=== PATIENT | male | born 1960 | race Caucasian/White ===

== ENCOUNTER 2018-01-10 18:46 | Emergency (ER) | payer MEDICAID ==
[~2018-01-10] VITALS: Ht 170.2 cm; Wt 88.6 kg
[2018-01-10 19:05] VITALS: Ht 170.2 cm; Wt 88.6 kg
[2018-01-10] MEDS ORDERED: GLUCOPHAGE500 MG PO (19:09)
[2018-01-10] MEDS ORDERED: GABAPENTIN100 MG PO (19:09)
[2018-01-10] MEDS ORDERED: REQUIP1 MG PO (19:10)
[2018-01-10] MEDS ORDERED: HYDROCODON-ACE1 EAC7 PO (21:52)
[2018-01-10 23:03] VITALS: BP 140/78
== END 2018-01-10 22:26 | disposition home or self-care (01) ==
LOC: D.ER 18:46
DX: S61.412A Laceration without foreign body of left hand, initial encounter (principal); W26.0XXA Contact with knife, initial encounter; Y93.89 Activity, other specified; Y92.019 Unspecified place in single-family (private) house as the place of occurrence of the external cause; E11.9 Type 2 diabetes mellitus without complications; F17.200 Nicotine dependence, unspecified, uncomplicated

== ENCOUNTER 2019-10-02 00:09 | Inpatient (IN) | payer MEDICAID ==
[~2019-10-02] VITALS: Ht 170.2 cm; Wt 77.1 kg
[~2019-10-02 00:09] MED LIST: GABAPENTIN100 MG PO; GLUCOPHAGE500 MG PO; HYDROCODON-ACE1 EAC7 PO; REQUIP1 MG PO
[2019-10-02 01:02] LABS: BASOPHILS 0.5 % (0-2); EOSINOPHILS 0.4 % (0-7); HEMATOCRIT 50.8 % (42.0-54.0); HEMOGLOBIN 16.7 g/dL (13.5-17.5); IMMATURE GRANULOCYTES 0.3 % (0-5); LYMPHOCYTES 6.3 % (15-50); MCH 32.4 pg (26.0-34.0); MCHC 32.9 g/dL (31.0-37.0); MCV 98.6 fL (80.0-100.0); MEAN PLATELET VOLUME 9.6 fL (7.4-10.4); MONOCYTES 0.6 % (2-11); NEUTROPHILS 91.9 % (40-80); PLATELET COUNT 239 10x3/uL (130-400); RBC 5.15 10x6/uL (4.20-6.10); RDW 13.3 % (11.5-14.5); WBC 7.9 10x3/uL (4.8-10.8)
[2019-10-02 01:12] LABS: APTT 43.5 SECONDS (22.8-39.4); PROTIME 13.2 SECONDS (11.6-15.0)
[2019-10-02 01:18] LABS: CALC OSMOLALITY 286 mosm/kg (275-300); CALCIUM 9.2 mg/dL (8.5-10.1); CARBON DIOXIDE 33.5 mmol/L (21.0-32.0); CHLORIDE - SERUM 104 mmol/L (98-107); CREATININE - SERUM 0.9 mg/dL (0.6-1.3); GLUCOSE 226 mg/dL (74-106); POTASSIUM - SERUM 4.3 mmol/L (3.5-5.1); SODIUM 141 mmol/L (136-145); UREA NITROGEN 9 mg/dL (7-18); eGFR NON AFRICAN AMERICAN > 90 mL/min (90-120)
[2019-10-02 01:36] LABS: ALBUMIN 4.1 g/dL (3.4-5.0); ALKALINE PHOSPHATASE 74 U/L (30-120); ALT (SGPT) 41 U/L (10-68); BILIRUBIN - TOTAL 0.56 mg/dL (0.2-1.3); CKMB 10.3 U/L (0.0-3.6); CREATINE KINASE 539 UL (21-232); PRO BNP 53 pg/mL (0-125); PROTEIN - SERUM 8.5 g/dL (6.4-8.2)
[2019-10-02 01:48] LABS: TROPONIN-I < 0.017 ng/mL (0.000-0.060)
[2019-10-02 04:15] VITALS: BP 120/78; BMI 26.7
--- NOTE | 2019-10-02 06:27 | NUR ---
PT. O2 SAT 77% ON ROOM AIR. REFUSED TO PUT ON O2 REFUSED UPDRAFT. STATED I'LL DO IT WHEN I GET DAME GOOD AND READY. WAS THROWING THINGS IN ROOM WITH RT.REFUSED ALL TX WITH RT AND AGAIN WITH THIS NURSE.
[2019-10-02 09:50] VITALS: Ht 170.2 cm; Wt 77.1 kg
[2019-10-02 10:00] VITALS: BP 108/63
[2019-10-02 10:47] LABS: BILIRUBIN NEGATIVE (NEGATIVE); GLUCOSE 1000 mg/dL (NEGATIVE); KETONE MODERATE mg/dL (NEGATIVE); NITRITE NEGATIVE (NEGATIVE); SPECIFIC GRAVITY 1.015 (1.005-1.020); UROBILINOGEN NORMAL (NORMAL)
[2019-10-02 13:47] VITALS: BP 105/55
--- NOTE | 2019-10-02 14:15 | NUR ---
CHARGING PATIENTS PHONE AT NURSES STATION ON MY WAREHOUSE ADMINISTRATIVE ASSISTANT. CL IN REACH. REQUESTED AND RECEIVED DIET COKES. NO FURTHER NEEDS AT THIS TIME. WCTM
--- NOTE | 2019-10-02 14:30 | NUR ---
CALLED LAB TO SEE WHETHER OR NOT THEY STILL HAD URINE FROM WHAT I COLLECTED EARLIER. THEY STATED THEY COULD GET THE UDS FROM WHAT I HAD ALREADY COLLECTED.
--- NOTE | 2019-10-02 14:36 | NUR ---
PATIENT ASLEEP ON LEFT SIDE. EASILY AWAKENED. CL IN REACH. WCTM
[2019-10-02 14:40] LABS: UDS - AMPHET NEGATIVE QUAL (NEGATIVE); UDS - BARB NEGATIVE QUAL (NEGATIVE); UDS - BENZO POSITIVE QUAL (NEGATIVE); UDS - COCAINE NEGATIVE QUAL (NEGATIVE); UDS - OPIATE NEGATIVE QUAL (NEGATIVE); UDS - PCP NEGATIVE QUAL (NEGATIVE); UDS - THC NEGATIVE QUAL (NEGATIVE)
--- NOTE | 2019-10-02 16:14 | NUR ---
PATIENT REQUESTS TO GO OUT FOR A CIGARETTE. I TOLD HIM THAT IS NOT ADVISABLE BECAUSE OF HIS COPD EXACERBATION. TAUGHT HIM THAT WITH HIS O2 SAT IS ONLY AT 90 % ON ROOM AIR. HE STATES THAT HE IS GOING TO DO IT ANYWAY. REQUESTED AND RECEIVED CELL PHONE BACK. CL IN REACH. HANS
[2019-10-02] MEDS ORDERED: VALIUM 2 MG TAB2 MG PO (18:07)
[2019-10-02] MEDS ORDERED: GABAPENTIN300 MG PO (18:08)
[2019-10-02 18:09] VITALS: BP 119/66
--- NOTE | 2019-10-02 19:30 | NUR ---
PT NOT WEARING TELEMETRY AND REFUSES TO WEAR IT. NOTIFIED FIRMWARE SOFTWARE VERIFICATION ENGINEER OF THIS.
--- NOTE | 2019-10-02 19:50 | NUR ---
SITTING UP ON SIDE OF BED. ALERT AND ORIENTED X4. ANXIOUS. STATES HIS IS LEAVING HIM. VISIBLY UPSET. NOT WEARING TELEMETRY AND REFUSES TO. REFUSES IV FLUIDS AND STATES, I'M DRINKING ENOUGH. WEARS O2 @ 4L/NC AT TIMES. DENIES PAIN. NONPROD COUGH NOTED. SALINE LOCK NOTED TO RT HAND. AMBULATORY. SR ELEVATED X2. CL IN REACH.
--- NOTE | 2019-10-02 22:30 | NUR ---
CONSENTS FOR BRONCH SIGNED AND PLACED ON CHART. INSTRUCTED OF NPO AFTER MIDNIGHT AND HE VERBALIZED UNDERSTANDING.
[2019-10-03] VITALS (10 sets, daily range): BP systolic 80–128; BP diastolic 36–75
--- NOTE | 2019-10-03 02:22 | NUR ---
LYING IN BED. HAS BEEN RESTING FOR THE LAST COUPLE OF HOURS. NO DISTRESS. NOT WEARING 02. CL IN REACH.
[2019-10-03 05:41] LABS: CALC OSMOLALITY 289 mosm/kg (275-300); CALCIUM 8.4 mg/dL (8.5-10.1); CARBON DIOXIDE 27.4 mmol/L (21.0-32.0); CHLORIDE - SERUM 102 mmol/L (98-107); CREATININE - SERUM 0.8 mg/dL (0.6-1.3); GLUCOSE 270 mg/dL (74-106); SODIUM 139 mmol/L (136-145); eGFR NON AFRICAN AMERICAN > 90 mL/min (90-120)
[2019-10-03 05:48] LABS: BASOPHILS 0.1 % (0-2); EOSINOPHILS 0.1 % (0-7); HEMATOCRIT 43.6 % (42.0-54.0); HEMOGLOBIN 14.4 g/dL (13.5-17.5); IMMATURE GRANULOCYTES 0.2 % (0-5); LYMPHOCYTES 7.6 % (15-50); MCH 31.9 pg (26.0-34.0); MEAN PLATELET VOLUME 10.1 fL (7.4-10.4); MONOCYTES 1.6 % (2-11); NEUTROPHILS 90.4 % (40-80); RBC 4.52 10x6/uL (4.20-6.10); RDW 13.3 % (11.5-14.5)
[2019-10-03 05:49] LABS: MCV 96.5 fL (80.0-100.0); PLATELET COUNT 289 10x3/uL (130-400)
[2019-10-03 05:57] LABS: UREA NITROGEN 17 mg/dL (7-18)
--- NOTE | 2019-10-03 08:31 | NUR ---
PATIENT AWAKE AND A/O. FOLLOWS INSTRUCTIONS. UNDERSTANDS HE IS NPO. NO FURTHER NEEDS AT THIS TIME. CL IN REACH. WCTM
--- NOTE | 2019-10-03 09:28 | MORECARE ---
CASE MANAGEMENT DISCHARGE SUMMARY PATIENT: KANWAL HILL UNIT: [id number] ADM DATE: 10/02/19 AGE: 58 : 56 SEX: M ROOM/BED: D.2211 AUTHOR: JERONIMO AMAYA PHYSICIAN: REFERRING PHYSICIAN: KALEB QUINTANA MD DATE OF SERVICE: 10/03/19 Discharge Plan Patient Name: KANWLA HILL Facility: [facility]:[place] : 1960 Planned Disposition: Home Anticipated Discharge Date: Discharge Date: Expected LOS: Initial Reviewer: [email or web address] Initial Review Date: 10/02/2019 Generated: 10/03/19 10:28 am DCPIA - Discharge Planning Initial Assessment Updated by [email or web address]: Silvana Sanders on 10/03/19 9:26 am * Is the patient Alert and Oriented? Yes * PCP FARO * [facility] * Preadmission Environment Home with Family * ADLs Independent * Equipment None * List name and contact numbers for known caregivers / representatives who currently or will assist patient after discharge: NOVEMBER (DAUGHTER) [phone] * Verbal permission to speak to the caregivers and representatives has been obtained from the patient. N/A * Community resources currently utilized None * Additional services required to return to the preadmission environment? No * Can the patient safely return to the preadmission environment? Yes * Has this patient been hospitalized within the prior 30 days at any hospital? No Patient Name: KANWAL HILL Page [phone] at 0928 All edits/amendments must be made on the electronic document DICTATION DATE: 10/03/19927 REALTY SPECIALIST: LOGAN 10/03/19927 RPT#: [id number] DC DATE: STATUS: ADM IN [facility] [address] [place] [address] END OF REPORT
--- NOTE | 2019-10-03 09:35 | MORECARE ---
CASE MANAGEMENT DISCHARGE SUMMARY PATIENT: KANWAL HILL UNIT: [id number] ADM DATE: 10/02/19 AGE: 58 : 56 SEX: M ROOM/BED: D.2211 AUTHOR: JERONIMO AMAYA PHYSICIAN: REFERRING PHYSICIAN: KALEB QUINTANA MD DATE OF SERVICE: 10/03/19 Discharge Plan Patient Name: KANWAL HILL Facility: [facility]:[place] : 1960 Planned Disposition: Home Anticipated Discharge Date: Discharge Date: Expected LOS: Initial Reviewer: [email or web address] Initial Review Date: 10/02/2019 Generated: 10/03/19 10:34 am Comments DCP- Discharge Planning Updated by [email or web address]: Silvana Sanders on 10/03/19 8:[address] Patient Name: KANWAL HILL Admission Status: ER Accout number: [id number] Admission Date: 10-02-2019 : 1960 Admission Diagnosis: Attending: KALEB QUINTANA Current LOS: 1 Anticipated DC Date: Planned Disposition: Home Primary Insurance: MEDICAID [place] Discharge Planning Comments: CM met with patient to complete initial dc planning assessment. CM educated patient on the CM role and verbal consent given by patient to complete assessment. Patient stated that he was evicted from his apartment 4 days ago and all his belongings were at his girlfriends home of 37 years but she left him. At discharge patient plans to go home to his daughters home in [place] and feels this is a safe discharge. CM discussed availability of home health, rehab services, and medical equipment. Patient denied known discharge needs at this time. His daughter will need to be called when there is an estimated discharge date because she lives 8 hours away. November (daughter) [phone]. CM will continue to follow and will assist as needed with dc plans/needs. Photostatic Copy Maker: Silvana Sanders DCPIA - Discharge Planning Initial Assessment Updated by [email or web address]: Silvana Sanders on 10/03/19 9:26 am * Is the patient Alert and Oriented? Yes * PCP FARO * Pharmacy [facility] * Preadmission Environment Home with Family * ADLs Independent * Equipment None * List name and contact numbers for known caregivers / representatives who currently or will assist patient after discharge: NOVEMBER (DAUGHTER) [phone] * Verbal permission to speak to the caregivers and representatives has been obtained from the patient. N/A * Community resources currently utilized None * Additional services required to return to the preadmission environment? No * Can the patient safely return to the preadmission environment? Yes * Has this patient been hospitalized within the prior 30 days at any hospital? No Last DP export: 10/03/19 8:28 a Patient Name: KANWAL HILL Page [phone] at 0935 All edits/amendments must be made on the electronic document DICTATION DATE: 10/03/19933 TRAVEL TICKETING REVIEWER: LOGAN 10/03/19933 RPT#: [id number] DC DATE: STATUS: ADM IN [facility] [address] [place] [address] END OF REPORT
--- NOTE | 2019-10-03 19:10 | NUR ---
BEDSIDE REPORT RECEIVED FROM DAY SHIFT, PT CARE ASSUMED. INTRODUCED SELF AND WROTE NAME ON BOARD. PT SITTING UP ON SIDE OF BED, AAOX4. DENIES ANY NEEDS AT THIS TIME. BED IN LOWEST POSITION, SR X2, CALL LIGHT WITHIN REACH. WILL CONTINUE TO MONITOR.
[2019-10-04] VITALS: BP 143/86
[2019-10-04 06:41] LABS: BASOPHILS 0.1 % (0-2); EOSINOPHILS 0 % (0-7); HEMATOCRIT 43.4 % (42.0-54.0); HEMOGLOBIN 14.5 g/dL (13.5-17.5); IMMATURE GRANULOCYTES 0.2 % (0-5); LYMPHOCYTES 9.9 % (15-50); MCH 32.2 pg (26.0-34.0); MCHC 33.4 g/dL (31.0-37.0); MCV 96.4 fL (80.0-100.0); MONOCYTES 2.6 % (2-11); NEUTROPHILS 87.2 % (40-80); PLATELET COUNT 273 10x3/uL (130-400); RDW 13.4 % (11.5-14.5); WBC 8.2 10x3/uL (4.8-10.8)
[2019-10-04 07:11] LABS: CALC OSMOLALITY 289 mosm/kg (275-300); CALCIUM 8.5 mg/dL (8.5-10.1); CARBON DIOXIDE 28.3 mmol/L (21.0-32.0); CHLORIDE - SERUM 101 mmol/L (98-107); CREATININE - SERUM 0.8 mg/dL (0.6-1.3); GLUCOSE 296 mg/dL (74-106); POTASSIUM - SERUM 4.2 mmol/L (3.5-5.1); SODIUM 138 mmol/L (136-145); UREA NITROGEN 20 mg/dL (7-18); eGFR NON AFRICAN AMERICAN > 90 mL/min (90-120)
[2019-10-04 08:48] VITALS: BP 113/71
[2019-10-04 13:01] VITALS: BP 131/79
--- NOTE | 2019-10-04 13:37 | NUR ---
RESTING IN BED, UP WALKING HALLS AT TIMES, IV INFUSING, TELE IN PLACE, CONT TO MONITOR SUGARS,AND RESP STATUS
[2019-10-04 15:09] LABS: ACID FAST SMEAR Negative (()); AFB SPECIMEN PROCESSING Concentration (())
[2019-10-04 19:46] VITALS: BP 119/68
--- NOTE | 2019-10-04 21:45 | NUR ---
UP AD YUNIEL IN HALLWAY. RESP EVEN AND UNALBORED. NO DISTRESS NOTED. IV TO LFA INTACT WITHOUT REDNESS OR EDEMA NOTED.NO COMPLALITNS OF PAIN.
[2019-10-05] VITALS: BP 122/75
--- NOTE | 2019-10-05 03:00 | NUR ---
PATIENT UP AD YUNIEL IN HALLWAY. BACK TO ROOM. SL TO LFA OUT. PATIENT STATES HE IS GOING [place] TODAY AND DOES NOT WANT IV RESTARTED..
[2019-10-05 04:00] VITALS: BP 137/72
--- NOTE | 2019-10-05 06:16 | NUR ---
I have reviewed this patient and I concur with the Shift Assessment completed by the Licensed Practical Nurse today this shift.
[2019-10-05 06:19] LABS: BASOPHILS 0 % (0-2); EOSINOPHILS 0 % (0-7); HEMOGLOBIN 14.7 g/dL (13.5-17.5); IMMATURE GRANULOCYTES 0.4 % (0-5); LYMPHOCYTES 13.2 % (15-50); MCH 32.1 pg (26.0-34.0); MCHC 33.4 g/dL (31.0-37.0); MCV 96.1 fL (80.0-100.0); MEAN PLATELET VOLUME 9.8 fL (7.4-10.4); MONOCYTES 3.5 % (2-11); NEUTROPHILS 82.9 % (40-80); PLATELET COUNT 275 10x3/uL (130-400); RBC 4.58 10x6/uL (4.20-6.10); RDW 13.5 % (11.5-14.5); WBC 7.1 10x3/uL (4.8-10.8)
[2019-10-05 06:53] LABS: CALC OSMOLALITY 287 mosm/kg (275-300); CALCIUM 9.2 mg/dL (8.5-10.1); CARBON DIOXIDE 26.9 mmol/L (21.0-32.0); CHLORIDE - SERUM 100 mmol/L (98-107); CREATININE - SERUM 0.9 mg/dL (0.6-1.3); GLUCOSE 343 mg/dL (74-106); MAGNESIUM - SERUM 1.7 mg/dL (1.8-2.4); POTASSIUM - SERUM 4.5 mmol/L (3.5-5.1); SODIUM 136 mmol/L (136-145); UREA NITROGEN 18 mg/dL (7-18); eGFR NON AFRICAN AMERICAN > 90 mL/min (90-120)
[2019-10-05 07:52] VITALS: BP 125/74
--- NOTE | 2019-10-05 11:04 | NUR ---
RESTING IN BED, PLACED IN ISOLATION THIS AM DUE TO STAPH GROWTH IN SPUTUM, CONT TO MONITOR PT SUGARS, DAUGHTER ON WAY TO [employer] PT TO TAKE HIM HOME WITH HER
[2019-10-05] MEDS ORDERED: AZITHROMYCIN500 MG PO (13:09)
[2019-10-05] MEDS ORDERED: OMNICEF300 MG PO (13:09)
[2019-10-05] MEDS ORDERED: PREDNISONE10 MG PO (13:10)
[2019-10-05] MEDS ORDERED: PROAIR HFA8.5 G1 INH (13:13)
--- NOTE | 2019-10-05 14:20 | NUR ---
REVIEWED DC ORDERS WITH PT, VOICED NO CONCERNS, WALKED OUT OF HOSPITAL
--- NOTE | 2019-10-06 09:29 | MORECARE ---
CASE MANAGEMENT DISCHARGE SUMMARY PATIENT: KANWAL HILL UNIT: [id number] ADM DATE: 10/02/19 AGE: 58 : 56 SEX: M ROOM/BED: D.2211 AUTHOR: JERONIMO AMAYA PHYSICIAN: REFERRING PHYSICIAN: KALEB QUINTANA MD DATE OF SERVICE: 10/06/19 Discharge Plan Patient Name: KANWAL HILL Facility: [facility]:[place] : 1960 Planned Disposition: Home Anticipated Discharge Date: Discharge Date: 10/05/2019 Expected LOS: Initial Reviewer: [email or web address] Initial Review Date: 10/02/2019 Generated: 10/06/19 10:28 am Comments DCP- Discharge Planning Updated by [email or web address]: Silvana Sanders on 10/03/19 8:[address] Patient Name: KANWAL HILL Admission Status: ER Accout number: [id number] Admission Date: 10-02-2019 : 1960 Admission Diagnosis: Attending: KALEB QUINTANA Current LOS: 1 Anticipated DC Date: Planned Disposition: Home Primary Insurance: MEDICAID [place] Discharge Planning Comments: CM met with patient to complete initial dc planning assessment. CM educated patient on the CM role and verbal consent given by patient to complete assessment. Patient stated that he was evicted from his apartment 4 days ago and all his belongings were at his girlfriends home of 37 years but she left him. At discharge patient plans to go home to his daughters home in [place] and feels this is a safe discharge. CM discussed availability of home health, rehab services, and medical equipment. Patient denied known discharge needs at this time. His daughter will need to be called when there is an estimated discharge date because she lives 8 hours away. November (daughter) [phone]. CM will continue to follow and will assist as needed with dc plans/needs. Vp Information Technology: Silvana Sanders DCPIA - Discharge Planning Initial Assessment Updated by [email or web address]: Silvana Sanders on 10/03/19 9:26 am * Is the patient Alert and Oriented? Yes * PCP FARO * Pharmacy [facility] * Preadmission Environment Home with Family * ADLs Independent * Equipment None * List name and contact numbers for known caregivers / representatives who currently or will assist patient after discharge: NOVEMBER (DAUGHTER) [phone] * Verbal permission to speak to the caregivers and representatives has been obtained from the patient. N/A * Community resources currently utilized None * Additional services required to return to the preadmission environment? No * Can the patient safely return to the preadmission environment? Yes * Has this patient been hospitalized within the prior 30 days at any hospital? No Last DP export: 10/03/19 8:35 a Patient Name: KANWAL HILL Page [phone] at 0929 All edits/amendments must be made on the electronic document DICTATION DATE: 10/06/19927 COMMERCIAL COLLECTIONS DRIVER: LOGAN 10/06/19927 RPT#: [id number] DC DATE:10/05/19 STATUS: DIS IN [facility] [address] [place] [address] END OF REPORT
[2019-10-06 10:08] LABS: FUNGUS STAIN Final report (())
== END 2019-10-05 14:15 | disposition home or self-care (01) | DRG 193 ==
LOC: D.ER 00:09 → D.MS 02:30
PROVIDERS: Family Medicine; Internal Medicine Pulmonary Disease; ADMIT Internal Medicine Nephrology; ATTEND Internal Medicine Nephrology
PROC: 0B9G8ZX Drainage of Left Upper Lung Lobe, Via Natural or Artificial Opening Endoscopic, Diagnostic (ICD-10-PCS; 2019-10-03)
PROC: 0B9F8ZX Drainage of Right Lower Lung Lobe, Via Natural or Artificial Opening Endoscopic, Diagnostic (ICD-10-PCS; principal; 2019-10-03 10:00)
DX: J18.9 Pneumonia, unspecified organism (principal); J96.01 Acute respiratory failure with hypoxia; J96.22 Acute and chronic respiratory failure with hypercapnia; E11.65 Type 2 diabetes mellitus with hyperglycemia; J43.9 Emphysema, unspecified